=== PATIENT | female | born 1980 | race Hispanic/Latino ===

== ENCOUNTER 2019-05-18 16:26 | Outpatient (CLI) | payer OTHER ==
--- NOTE | 2019-05-18 16:49 | RAD ---
Right knee 4 views: 05/18/2019 COMPARISON: None HISTORY: Fall, trauma, pain FINDINGS: No significant knee joint effusion is seen. No displaced fracture or evidence of dislocatio n noted. IMPRESSION: No acute fracture or evidence of dislocation.
--- NOTE | 2019-05-18 16:49 | RAD ---
Frontal and lateral imaging of the right tibia/fibula: 05/18/2019 COMPARISON: None HISTORY: Fall, trauma, pain FINDINGS: No displaced fracture or evidence of dislocation is seen. IMPRESSION: No acute findings.
== END 2019-05-18 16:27 | disposition home or self-care (01) ==
LOC: BICRAD 16:26
DX: M25.561 Pain in right knee (principal); M79.604 Pain in right leg